=== PATIENT | female | born 1995 | race Asian ===

== ENCOUNTER 2017-09-04 10:27 | Emergency (ER) | payer SELFPAY ==
[~2017-09-04] VITALS: Ht 170.2 cm; Wt 58.5 kg
[2017-09-04 10:31] VITALS: Ht 170.2 cm; Wt 58.5 kg
[2017-09-04] MEDS ORDERED: morphine 4 MG/ML VIAL IV STA (11:18)
[2017-09-04] MEDS ORDERED: ONDANSETRON 4 MG INJ IV STA ×2 (11:18→12:40)
--- NOTE | 2017-09-04 11:23 | ERD ---
ER Documentation Chief Complaint Chief Complaint abdominal pain x 1 week HPI This is a 22-year-old female who presents the emergency department today complaining of abdominal pain, vomiting for the past week. Patient states that one week ago she ate seafood and she felt really full so she took a tea laxative thinking that would help her. States that the pain was intermittent throughout the week and worse on Monday. States that she has tried Tums and Zantac and Tylenol. She does like eating spicy foods. Denies any fevers or chills, diarrhea, dysuria ROS All systems reviewed and are negative except as per history of present illness. Medications Home Meds Active Scripts Metoclopramide* (Reglan*) 10 Mg Tablet, 10 MG PO Q6 Y for NAUSEA AND/OR VOMITING , #30 TAB Prov:SIXTO KENNEY PA-C 09/04/17 Cephalexin* (Keflex*) 500 Mg Capsule, 500 MG PO QID for 7 Days, CAP Prov:SIXTO KENNEY PA-C 09/04/17 Acetaminophen* (Tylophen*) 500 Mg Capsule, 1 CAP PO Q6H Y for PAIN AND OR ELEVATED TEMP, #30 CAP Prov:SIXTO KENNEY PA-C 09/04/17 Electrolyte,Oral (Pedialyte) 1,000 Ml Solution, 100 ML PO Q6 Y for VOMITTING, # 1000 ML Prov:SIXTO KENNEY PA-C 09/04/17 Famotidine* (Pepcid*) 20 Mg Tablet, 20 MG PO BID for 10 Days, TAB Prov:SIXTO KENNEY PA-C 09/04/17 Allergies Allergies: Coded Allergies: No Known Allergy (Unverified , 09/04/17) PMhx/Soc Medical and Surgical Hx: pt denies Medical Hx, pt denies Surgical Hx Hx Alcohol Use: No Hx Substance Use: No Hx Tobacco Use: No Physical Exam Vitals Vital Signs Date Time Temp Pulse Resp B/P Pulse Ox O2 Delivery O2 Flow Rate FiO2 09/04/17 10:31 98.7 79 18 140/61 99 Physical Exam Const: NAD Head: Atraumatic Eyes: Normal Conjunctiva ENT: Normal External Ears, Nose and Mouth. Neck: Full range of motion..~ No meningismus. Resp: Clear to auscultation bilaterally Cardio: Regular rate and rhythm, no murmurs Abd: Soft, epigastric and right upper quadrant tenderness non distended. Normal bowel sounds no lower abdominal pain. No lower abdominal pain or tenderness at McBurney's. Skin: No petechiae or rashes Back: No midline or flank tenderness Ext: No cyanosis, or edema Neur: Awake and alert Psych: Normal Mood and Affect Result Diagram: 09/04/17 1140 09/04/17 1140 Results 24 hrs Laboratory Tests Test 09/04/17 11:30 09/04/17 11:40 Urine Color YELLOW Urine Clarity SLIGHTLY CLOUDY Urine pH 8.0 Urine Specific [place] 1.024 Urine Ketones 2+mg/dL Urine Nitrite NEGATIVEmg/dL Urine Bilirubin NEGATIVEmg/dL Urine Urobilinogen NEGATIVEmg/dL Urine Leukocyte Esterase 1+Kym/ul Urine Microscopic RBC 6/HPF Urine Microscopic WBC 14/HPF Urine Squamous Epithelial Cells MODERATE/HPF Urine Bacteria FEW/HPF Urine Mucus MANY/HPF Urine Hemoglobin NEGATIVEmg/dL Urine Glucose NEGATIVEmg/dL Urine Total Protein 1+mg/dl White Blood Count 8.910^3/ul Red Blood Count 4.0210^6/ul Hemoglobin 12.7g/dl Hematocrit 38.0% Mean Corpuscular Volume 94.5fl Mean Corpuscular Hemoglobin 31.6pg Mean Corpuscular Hemoglobin Concent 33.4g/dl Red Cell Distribution Width 12.1% Platelet Count 37902^3/UL Mean Platelet Volume 10.9fl Neutrophils % 71.8% Lymphocytes % 19.5% Monocytes % 6.7% Eosinophils % 1.1% Basophils % 0.3% Nucleated Red Blood Cells % 0.0/100WBC Neutrophils # 6.410^3/ul Lymphocytes # 1.710^3/ul Monocytes # 0.610^3/ul Eosinophils # 0.110^3/ul Basophils # 0.010^3/ul Nucleated Red Blood Cells # 0.010^3/ul Sodium Level 141mmol/L Potassium Level 4.0mmol/L Chloride Level 102mmol/L Carbon Dioxide Level 25mmol/L Anion Gap 18 Blood Urea Nitrogen 12mg/dl Creatinine 0.60mg/dl Glucose Level 81mg/dl Calcium Level 9.9mg/dl Total Bilirubin 0.4mg/dl Direct Bilirubin 0.00mg/dl Indirect Bilirubin 0.4mg/dl Aspartate Amino Transf (AST/SGOT) 20IU/L Alanine Aminotransferase (ALT/SGPT) 26IU/L Alkaline Phosphatase 50IU/L Total Protein 8.1g/dl Albumin 4.7g/dl Globulin 3.40g/dl Albumin/Globulin Ratio 1.38 Lipase 88U/L Beta HCG, Quantitative 85753.0mIU/ml Current Medications Medications (Trade) Dose Ordered Sig/Kyung Route PRN Reason Start Time Stop Time Status Last Admin Dose Admin Morphine Sulfate (morphine) 4 mg ONCE STAT IV 09/04/17 11:18 09/04/17 11:50 DC 09/04/17 11:41 Ondansetron HCl (Zofran Inj) 4 mg ONCE STAT IV 09/04/17 11:18 09/04/17 11:20 DC 09/04/17 11:41 Acetaminophen (Tylenol Tab) 500 mg ONCE STAT PO 09/04/17 11:48 09/04/17 11:50 DC 09/04/17 12:02 Ondansetron HCl (Zofran Inj) 4 mg ONCE STAT IV 09/04/17 12:40 09/04/17 12:41 DC 09/04/17 12:44 Metoclopramide HCl 10 mg 10 mg ONCE ONCE IV 09/04/17 15:30 09/04/17 15:31 DC 09/04/17 15:18 Sodium Chloride (NS) 1,000 ml @ 1,000 mls/hr Q1H ONCE IV 09/04/17 15:30 09/04/17 16:29 DC 09/04/17 15:18 DIAGNOSTIC IMAGING REPORT Patient: GORDON LEWIS : 1995 Age: 22 Sex: F MR #: [id number] DOS: 09/04/17 1118 Ordering MD: SIXTO KENNEY PA-C Location: [facility] Room/Bed: PROCEDURE: Right upper quadrant ultrasound CLINICAL INDICATION: Abdominal pain TECHNIQUE: Multiple real-time images were acquired of the patient's abdomen and right retroperitoneum utilizing a high resolution transducer. COMPARISON: None FINDINGS: The liver is normal in echogenicity and measures 13.3 cm. No focal hepatic masses are seen. The gallbladder is physiologically distended. There is no evidence of gallstones, gallbladder wall thickening, or pericholecystic fluid. The intra and extrahepatic bile ducts are normal in caliber. The common bile duct measures 3.9 mm. Midline images demonstrate the pancreas to be normal in echogenicity without obvious inflammatory change. Survey views of the right kidney demonstrate no evidence of hydronephrosis or renal calculi. The right kidney measures 10.5 cm. IMPRESSION: Unremarkable right upper quadrant ultrasound. No evidence of cholelithiasis or acute cholecystitis.. RPTAT: HH .Calixto Michael MD, MD Date Time Electronically viewed and signed by .Calixto Michael MD, MD on 09/04/2017 11:54 .W/ CC: SIXTO KENNEY PA-C DIAGNOSTIC IMAGING REPORT Patient: GORDON LEWIS : 1995 Age: 22 Sex: F MR #: [id number] DOS: 09/04/17 1150 Ordering MD: SIXTO KENNEY PA-C Location: [facility] Room/Bed: PROCEDURE: OB Ultrasound. CLINICAL INDICATION: Abdominal pain. TECHNIQUE: Ultrasound of the pelvis was performed with transabdominal sonography in the axial and sagittal planes. COMPARISON: No prior study is available for comparison. FINDINGS: Uterus is normal in size and echotexture. There is an intrauterine gestational sac which demonstrates a yolk sac, embryonic pole and cardiac activity at 107 beats per minute. There is a small subchorionic hemorrhage present. The mean gestational sac size is 2.14 cm consistent with a 5-umhj-7-day gestation. The mean crown-rump length is 0.34 cm consistent with a 5-rbtq-2-day gestation. Ovaries are normal in size and echotexture bilaterally. There are no adnexal masses. There is a trace amount of free fluid seen in the cul-de-sac. IMPRESSION: 1. Single living intrauterine gestation with a mean gestational age by ultrasound of 6 weeks 3 days plus or minus 3 days. Estimated date of delivery is 04/27/2018 by ultrasound criteria. 2. Small subchorionic hemorrhage present. 3. Small amount of free fluid in the cul-de-sac. This may be physiologic. RPTAT: [facility] Jose Huff Physician Date Time Electronically viewed and signed by Jose Huff Physician on 09/04/2017 12: 46 JH/ CC: SIXTO KENNEY PA-C Procedures/MDM This a 22-year-old female who presents the emergency department today complaining of abdominal pain vomiting for the past week. Patient has tried tchj-ret-erqxqqq medication such as Zantac, Tums and Tylenol. She is afebrile and otherwise well-appearing however on physical exam she does have epigastric and some mild right upper quadrant tenderness and therefore given the length and duration of symptoms I did obtain laboratory workup as well as imaging. This is the patient's first visit to the emergency department. Urine test is POSITIVE RUQ US shows no evidence of cholelithiasis or acute cholecystitis. Patient was given morphine, Zofran here in the emergency department prior to positive test. I notified patient of positive test Given patient's positive test I did do a complete OB workup on her. She is a Laboratory workup no elevated white blood cell count. She is not anemic. Platelets are within normal limits. Electrolytes are within normal limits. Glucose is within normal limits. Liver enzymes are within normal limits. Lipase is within normal limits. UA shows 1+ leukocyte esterase and 14 microscopic white blood cells. Beta quant hCG 43257 Rh status B+ Ultrasound is a single live intrauterine gestation with a mean gestational age of 6 weeks and 3 days by ultrasound 3 days. Estimated date of delivery is April 27, 2018. There is a small subchronic hemorrhage present. Trace amount of free fluid. There are no adnexal masses. Patient symptoms at this time is consistent with abdominal pain and vomiting in early . Patient has a urinary tract infection. This may also be causing some of her abdominal pain and vomiting. She has no vaginal bleeding. Other differentials to consider early normal versus early failed Patient is afebrile and otherwise well-appearing. I have low suspicion for ectopic , tubo ovarian abscess, ovarian torsion. Has no lower abdominal pain and she has had no fevers and I have low suspicion for acute surgical abdomen, acute appendicitis. Patient's vomiting persisted and therefore she was given Reglan and IV fluids reported feeling significantly better and felt well enough to go home. I do not feel that she needs to be admitted to the hospital for concern for hyperemesis gravidarum. Her labs are within normal limits. She was tolerating oral fluids. Patient will be given a prescription for Pedialyte, Tylenol, said , Reglan and Keflex. Patient has evidence of subchorionic hemorrhage on ultrasound. I have explained to the patient that she may have vaginal bleeding in the future. I have explained to her to refrain from heavy lifting and sexual intercourse at this time. Patient and partner understood. At this time the patient is stable for discharge and outpatient management. Patient should follow up with their PCP in the next 1-2 days. They may return to the emergency department sooner for any persistent or worsening of symptoms. Patient understood and agreed with the plan. Departure Diagnosis: Primary Impression: Abdominal pain during in first trimester Additional Impression: Vomiting during Condition: SIXTO Perry PA-C Sep 04, 2017 11:23
[2017-09-04] MEDS ORDERED: ACETAMINOPHEN 500 MG TAB PO STA (11:48)
--- NOTE | 2017-09-04 11:54 | RADRPT ---
PROCEDURE: Right upper quadrant ultrasound CLINICAL INDICATION: Abdominal pain TECHNIQUE: Multiple real-time images were acquired of the patient's abdomen and right retroperiton eum utilizing a high resolution transducer. COMPARISON: None FINDINGS: The liver is normal in echogenicity and measures 13.3 cm. No focal hepatic masses are seen. The ga llbladder is physiologically distended. There is no evidence of gallstones, gallbladder wall thicke marisa, or pericholecystic fluid. The intra and extrahepatic bile ducts are normal in caliber. The c ommon bile duct measures 3.9 mm. Midline images demonstrate the pancreas to be normal in echogenicity without obvious inflammatory ch lizzie. Survey views of the right kidney demonstrate no evidence of hydronephrosis or renal calculi. The ri ght kidney measures 10.5 cm. IMPRESSION: Unremarkable right upper quadrant ultrasound. No evidence of cholelithiasis or acute cholecystitis. . RPTAT: HH .Calixto Michael MD, Date Time Electronically viewed and signed by .Calixto Michael MD, MD on 09/04/2017 11:54 .W/
[2017-09-04 12:11] LABS: BASOPHILS % 0.3 % (0.0-2.0); EOSINOPHILS # 0.1 10^3/ul (0.0-0.5); EOSINOPHILS % 1.1 % (0.0-7.0); HEMOGLOBIN 12.7 g/dl (12.0-16.0); LYMPHOCYTES # 1.7 10^3/ul (0.8-2.9); LYMPHOCYTES % 19.5 % (15.0-51.0); MEAN CORPUSCULAR HEMOGLOBIN 31.6 pg (29.0-33.0); MEAN CORPUSCULAR HGB CONC 33.4 g/dl (32.0-37.0); MEAN CORPUSCULAR VOLUME 94.5 fl (82.0-101.0); MEAN PLATELET VOLUME 10.9 fl (7.4-10.4); MONOCYTE # 0.6 10^3/ul (0.3-0.9); MONOCYTES % 6.7 % (0.0-11.0); NEUTROPHIL # 6.4 10^3/ul (1.6-7.5); NEUTROPHILS % 71.8 % (39.0-77.0); PLATELET COUNT 212 10^3/UL (140-415); RED BLOOD COUNT 4.02 10^6/ul (4.20-5.40); RED CELL DISTRIBUTION WIDTH 12.1 % (11.5-14.5); WHITE BLOOD COUNT 8.9 10^3/ul (4.8-10.8)
[2017-09-04 12:18] LABS: ADD UMIC YES; UR ASCORBIC ACID 40 mg/dL (NEGATIVE); UR BACTERIA FEW /HPF (NONE SEEN); UR BILIRUBIN (Dip) NEGATIVE (NEGATIVE); UR BLOOD (Dip) NEGATIVE (NEGATIVE); UR CLARITY SLIGHTLY CLOUDY (CLEAR); UR COLOR YELLOW (YELLOW); UR GLUCOSE (Dip) NEGATIVE (NEGATIVE); UR KETONES (Dip) 2+ mg/dL (NEGATIVE); UR LEUKOCYTE ESTERASE (Dip) 1+ Leu/ul (NEGATIVE); UR MUCUS MANY /HPF (NONE SEEN); UR NITRITE (Dip) NEGATIVE (NEGATIVE); UR RBC 6 /HPF (0-5); UR SPECIFIC GRAVITY (Dip) 1.024 (1.003-1.030); UR SQUAMOUS EPITHELIAL CELL MODERATE /HPF (FEW); UR TOTAL PROTEIN (Dip) 1+ mg/dl (NEGATIVE); UR UROBILINOGEN (Dip) NEGATIVE (NEGATIVE)
[2017-09-04 12:19] LABS: ALBUMIN 4.7 g/dl (3.3-4.9); ALBUMIN/GLOBULIN RATIO 1.38; BILIRUBIN,INDIRECT 0.4 mg/dl (0-1.1); BILIRUBIN,TOTAL 0.4 mg/dl (0.2-1.3); CALCIUM 9.9 mg/dl (8.4-10.2); CREATININE 0.6 mg/dl (0.44-1.00); TOTAL PROTEIN 8.1 g/dl (6.1-8.1)
--- NOTE | 2017-09-04 12:46 | RADRPT ---
PROCEDURE: OB Ultrasound. CLINICAL INDICATION: Abdominal pain. TECHNIQUE: Ultrasound of the pelvis was performed with transabdominal sonography in the axial and sa gittal planes. COMPARISON: No prior study is available for comparison. FINDINGS: Uterus is normal in size and echotexture. There is an intrauterine gestational sac which demonstrate s a yolk sac, embryonic pole and cardiac activity at 107 beats per minute. There is a small subchori onic hemorrhage present. The mean gestational sac size is 2.14 cm consistent with a 6-zvan-9-day ges tation. The mean crown-rump length is 0.34 cm consistent with a 9-oxwm-1-day gestation. Ovaries are normal in size and echotexture bilaterally. There are no adnexal masses. There is a trace amount of free fluid seen in the cul-de-sac. IMPRESSION: 1. Single living intrauterine gestation with a mean gestational age by ultrasound of 6 weeks 3 day s plus or minus 3 days. Estimated date of delivery is 04/27/2018 by ultrasound criteria. 2. Small subchorionic hemorrhage present. 3. Small amount of free fluid in the cul-de-sac. This may be physiologic. RPTAT: [facility] Physician Neida Date Time Electronically viewed and signed by Physician Neida on 09/04/2017 12:46 /
[2017-09-04] MEDS ORDERED: SOD CHLORIDE 0.9% 1,000 ML IV ONE (15:30)
[2017-09-04] MEDS ORDERED: METOCLOPRAMIDE 10 MG INJ IV ONE (15:30)
[2017-09-04] MEDS ORDERED: FAMO-96 PO (17:45)
[2017-09-04] MEDS ORDERED: ACET500C5 PO (17:46)
[2017-09-04] MEDS ORDERED: ELEC100080 PO (17:46)
[2017-09-04] MEDS ORDERED: CEPH-443 PO (17:47)
[2017-09-04] MEDS ORDERED: METO10TA92 PO (17:47)
[2017-09-04 18:08] VITALS: BP 104/63; PULSE 70; RESP 16; TEMP 98
== END 2017-09-04 18:11 | disposition home or self-care (01) ==
LOC: FTE 10:27
DX: O26.891 Other specified pregnancy related conditions, first trimester (principal); O21.9 Vomiting of pregnancy, unspecified; R10.13 Epigastric pain; R10.11 Right upper quadrant pain; R10.2 Pelvic and perineal pain; Z3A.01 Less than 8 weeks gestation of pregnancy
CPT/HCPCS: 36415; 76705; 76801; 76817; 80053; 81001; 83690; 84702; 85025; 86900; 86901; 96374; 96375; 96376; 99285; J2270; J2405; J2765; J7030